=== PATIENT | female | born 1975 | race American Indian/Alaskan Native ===

== ENCOUNTER 2018-03-15 23:18 | Inpatient (IN) | payer MEDICAID ==
[2018-03-15 23:18] VITALS: BMI 35.4
[2018-03-15 23:57] LABS: BASO % 0.3 % (0.0-2.0); EOS # 0.1 K/uL (0.0-0.7); EOS % 1.5 % (0.0-4.0); HEMOGLOBIN 9.3 g/dL (11.0-16.0); LYMPH # 2.3 K/uL (1.0-4.3); MEAN CELL VOLUME 85.8 fL (81.0-99.0); MEAN CORPUSCULAR HGB CONC 33.8 g/dL (33.0-37.0); MEAN PLATELET VOLUME 8.8 fL (7.2-11.7); MONO # 0.4 K/uL (0.0-0.8); MONO % 5.3 % (0.0-10.0); NEUT # 4.2 K/uL (1.8-7.0); NEUT % 59.9 % (50.0-75.0); RBC 3.19 Mil/uL (3.80-5.20); RED CELL DISTRIBUTION WIDTH 14.3 % (11.5-14.5)
[2018-03-16 00:02] LABS: INR 1.1; PROTHROMBIN TIME 12.4 SECONDS (9.7-12.2)
[2018-03-16 00:18] LABS: ALB/GLOB RATIO 1.3 (1.0-2.1); ALT/SGPT 22 U/L (9-52); AST/SGOT 20 U/L (14-36); BLOOD UREA NITROGEN 11 mg/dL (7-17); CALCIUM 9.4 mg/dl (8.6-10.4); GFR AFRICAN-AMERICAN > 60; GFR NON-AFRICAN AMERICAN > 60
--- NOTE | 2018-03-16 01:29 | C.PDOC ---
History Of Present Illness 42 year old female presents to the emergency department with complaints of sudden onset of heavy vaginal bleeding since earlier this evening. Patient reports that her last normal menstrual period was last month. Patient also reports a lower abdominal cramp, but she denies syncope, control use, or prior history of STD. Chief Complaint (Nursing): Abdominal Pain History Per: Patient History/Exam Limitations: no limitations Onset/Duration Of Symptoms: Hrs Current Symptoms Are (Timing): Still Present Location Of Pain/Discomfort: Other (lower abdominal pain) Radiation Of Pain To:: None Quality Of Discomfort: Cramping Associated Symptoms: Other (vaginal bleeding) : 3 Para: 3 Past Medical History Reviewed: Historical Data, Nursing Documentation, Vital Signs Vital Signs: Last Vital Signs Temp 98.3 F 03/16/18 05:20 Pulse 75 03/16/18 05:20 Resp 20 03/16/18 05:20 BP 96/56 L 03/16/18 05:20 Pulse Ox 100 03/16/18 05:58 - Medical History PMH: No Chronic Diseases Surgical History: No Surg Hx - [facility] Procedures DPT ADMINISTRATION (06/11/15) MANUAL ASSIST DELIV NEC (06/11/15) Family History: States: No Known Family Hx - Social History Hx Tobacco Use: No Hx Alcohol Use: Yes Hx Substance Use: No - Immunization History Hx Tetanus Toxoid Vaccination: No Hx Influenza Vaccination: No Hx Pneumococcal Vaccination: No Review Of Systems Cardiovascular: Negative for: Light Headedness, Other (syncope) Gastrointestinal: Positive for: Abdominal Pain (cramp) Genitourinary: Positive for: Vaginal Bleeding Physical Exam - Physical Exam Appears: Non-toxic, In Acute Distress (moderate distress, is experiencing pain and generalized weakness) Skin: Normal Color, Warm, Dry Head: Atraumatic, Normacephalic Eye(s): bilateral: Normal Inspection Nose: Normal Neck: Supple Chest: Symmetrical Cardiovascular: Rhythm Regular Gastrointestinal/Abdominal: Normal Exam, Soft, Tenderness (suprapubic tenderness ), No Mass, No Guarding, No Rebound Pelvic: Normal External Exam (genitalia within normal limits), Normal Bimanual Exam (copious amounts of clotted blood extending all the way down to the cervix. ), Vaginal Bleeding (dried, coagulated blood present), No Adnexal Tenderness, Tender Uterus, Other (products of inception) Extremity: Normal ROM (uterus is firm) DTR: Ankle (R): 0, Ankle (L): 0 Neurological/Psych: Oriented x3, Normal Speech, Normal Cognition ED Course And Treatment - Laboratory Results Result Diagrams: 03/16/18 03:19 03/15/18 23:52 O2 Sat by Pulse Oximetry: 100 (RA) Pulse Ox Interpretation: Normal Medical Decision Making Medical Decision Making: Plan: Packed Red Blood Cells Type and Screen Beta-HCG CMP CBC PTT Prothombin Time Transfuse Blood US Pelvis/Transvaginal Prior to MDM, patient was hypotensive. Impression: Incomplete AB vs. Complete AB vs. Ectopic Spoke with Dr. Jerez who came to the ED and removed further product. She wanted to wait for a second hematocrit reading before final disposition. Upon obtaining second reading of 6.3, she agreed to admit the patient under her service. Disposition - Disposition Disposition: HOSPITALIZED Disposition Time: 06:08 Condition: FAIR - Clinical Impression Clinical Impression: Miscarriage - Scribe Statement The provider has reviewed the documentation as recorded by the Scribe (Jonathan Velásquez) Provider Attestation: All medical record entries made by the Scribe were at my direction and personally dictated by me. I have reviewed the chart and agree that the record accurately reflects my personal performance of the history, physical exam, medical decision making, and the department course for this patient. I have also personally directed, reviewed, and agree with the discharge instructions and disposition.
--- NOTE | 2018-03-16 03:05 | CP.PCM.CON ---
History of Present Illness - History of Present Illness History of Present Illness: 42 ytr lmp 02/13/18 came with c/o heavuy vb stard yesterday night wityc;ot and cramping. pt did not knew she is preg, undesire prg. obhx 3 x pmh den med pnv all nkda psh de soh de sse clost in the cervix, removed send to pathology.no more active vb abd sof,non tender Past Patient History - Past Social History Smoking Status: Never Smoked - PSYCHIATRIC Hx Substance Use: No - SURGICAL HISTORY Hx Surgeries: No Meds Allergies/Adverse Reactions: Allergies Allergy/AdvReac Type Severity Reaction Status Date / Time No Known Allergies Allergy Verified 03/15/18 23:31 Physical Exam - Exam Speculum exam: Vaginal Bleeding Bimanual exam: NORMAL BIMANUAL EXAM Results - Vital Signs Recent Vital Signs: Last Vital Signs Temp 97.2 F L 03/15/18 23:29 Pulse 79 03/15/18 23:29 Resp 16 03/15/18 23:29 BP 119/76 03/15/18 23:29 Pulse Ox 100 03/16/18 01:29 - Labs Result Diagrams: 03/15/18 23:52 03/15/18 23:52 Labs: Laboratory Results - last 24 hr 03/15/18 03/15/18 03/15/18 23:52 23:52 23:52 WBC 7.0 RBC 3.19 L Hgb 9.3 L Hct 27.4 L MCV 85.8 MCH 29.0 MCHC 33.8 RDW 14.3 Plt Count 191 MPV 8.8 Neut % (Auto) 59.9 Lymph % (Auto) 33.0 [place] % (Auto) 5.3 Eos % (Auto) 1.5 Baso % (Auto) 0.3 Neut # (Auto) 4.2 Lymph # (Auto) 2.3 [place] # (Auto) 0.4 Eos # (Auto) 0.1 Baso # (Auto) 0.0 PT 12.4 H INR 1.1 APTT 26 Sodium 139 Potassium 3.2 L Chloride 105 Carbon Dioxide 24 Anion Gap 14 BUN 11 Creatinine 0.6 L Est GFR ( Amer) > 60 Est GFR (Non-Af Amer) > 60 Random Glucose 101 Calcium 9.4 Total Bilirubin 0.6 AST 20 ALT 22 Alkaline Phosphatase 40 Total Protein 7.1 Albumin 4.0 Globulin 3.1 Albumin/Globulin Ratio 1.3 Beta HCG, Quant 1704.90 Blood Type Antibody Screen 03/16/18 00:42 WBC RBC Hgb Hct MCV MCH MCHC RDW Plt Count MPV Neut % (Auto) Lymph % (Auto) [place] % (Auto) Eos % (Auto) Baso % (Auto) Neut # (Auto) Lymph # (Auto) [place] # (Auto) Eos # (Auto) Baso # (Auto) PT INR APTT Sodium Potassium Chloride Carbon Dioxide Anion Gap BUN Creatinine Est GFR ( Amer) Est GFR (Non-Af Amer) Random Glucose Calcium Total Bilirubin AST ALT Alkaline Phosphatase Total Protein Albumin Globulin Albumin/Globulin Ratio Beta HCG, Quant Blood Type A POSITIVE Antibody Screen Negative Assessment & Plan - Assessment and Plan (Free Text) Assessment: 42 yr complete
[2018-03-16 03:33] LABS: BASO # 0.1 K/uL (0.0-0.2); BASO % 1.7 % (0.0-2.0); EOS % 0.3 % (0.0-4.0); LYMPH % 12.1 % (20.0-40.0); MEAN CELL VOLUME 86.5 fL (81.0-99.0); MEAN CORPUSCULAR HEMOGLOBIN 28.8 pg (27.0-31.0); MEAN CORPUSCULAR HGB CONC 33.3 g/dL (33.0-37.0); MEAN PLATELET VOLUME 8.4 fL (7.2-11.7); MONO # 0.3 K/uL (0.0-0.8); MONO % 3.5 % (0.0-10.0); NEUT # 6.8 K/uL (1.8-7.0); NEUT % 82.4 % (50.0-75.0); RBC 2.19 Mil/uL (3.80-5.20); RED CELL DISTRIBUTION WIDTH 14.2 % (11.5-14.5); WHITE BLOOD COUNT 8.2 K/uL (4.8-10.8)
[2018-03-16 03:36] LABS: HEMOGLOBIN 6.3 g/dL (11.0-16.0)
[2018-03-16] MEDS: Lactated Ringer's 1,000 ML IV SCH ×5 (03:48→23:45)
--- NOTE | 2018-03-16 04:39 | US ---
EXAM: US First Trimester, Transabdominal US , Transvaginal CLINICAL HISTORY: 42 years old, female; Signs and symptoms; Other: Bleeding; Additional info: Bleeding bed 9 TECHNIQUE: Real-time transabdominal and transvaginal obstetrical ultrasound of the maternal pelvis and a first trimester with image documentation. Transvaginal imaging was used for better evaluation of the fetus and adnexa. COMPARISON: No relevant prior studies available. FINDINGS: Gestation: No intrauterine gestational sac. Uterus/cervix: Endometrium: 1.5 cm in thickness, heterogeneous and hypervascular. Closed cervix. Ovaries: Normal ovaries. No adnexal masses. Free fluid: No significant free fluid. IMPRESSION: 1. No intrauterine gestation. DDX: Early IUP, missed , ectopic . 2. Thickened, heterogeneous, hypervascular endometrium. RPOC not excluded.
--- NOTE | 2018-03-16 07:16 | CP.PCM.HP ---
History of Present Illness - History of Present Illness History of Present Illness: 42 year old female comes into the emergency department complaining of sudden heavy vaginal bleeding that began last night. The patient also reports cramping in conjunction with the bleeding. The patient was found to be when admitted. Patient reports she didn't know she was . Patient's last menstrual period is 02/13/18. Patient denies any syncopal episodes, chest pain, shortness of breath, fevers, chills, nausea, vomiting, changes in vision, dizziness, or any other complaints. obhx 3 x Past medical history: denies. Medications: Denies Allergies: denies Past surgical history: denies Social history: Denies Present on Admission - Present on Admission Any Indicators Present on Admission: No Review of Systems - Constitutional Constitutional: absent: Chills, Daytime Sleepiness - EENT Eyes: absent: Blurred Vision, Discharge, Loss of Peripheral Vision, Loss of Vision Ears: absent: Ear Discharge, Dizziness Nose/Mouth/Throat: absent: Nasal Congestion - Breasts Breasts: absent: Mass, Swelling - Cardiovascular Cardiovascular: absent: Chest Pain, Irregular Heart Rhythm, Leg Edema, Orthopnea - Respiratory Respiratory: absent: Cough, Dyspnea, Hemoptysis - Gastrointestinal Gastrointestinal: absent: Belching, Diarrhea, Heartburn, Nausea, Vomiting - Genitourinary Additional comments: Vaginal bleeding. - Musculoskeletal Musculoskeletal: absent: Arthralgias, Back Pain, Neck Pain - Integumentary Integumentary: absent: Lesions, Striae - Psychiatric Psychiatric: absent: Anxiety, Change in Appetite, Panic Attacks, Paranoia Past Patient History - Past Medical History & Family History Past Medical History?: No - Past Social History Smoking Status: Never Smoked - MUSCULOSKELETAL/RHEUMATOLOGICAL Hx Falls: No - PSYCHIATRIC Hx Substance Use: No - SURGICAL HISTORY Hx Surgeries: No Meds Allergies/Adverse Reactions: Allergies Allergy/AdvReac Type Severity Reaction Status Date / Time No Known Allergies Allergy Verified 03/15/18 23:31 Physical Exam - Head Exam Head Exam: ATRAUMATIC, NORMAL INSPECTION, NORMOCEPHALIC - Eye Exam Eye Exam: Normal appearance - ENT Exam ENT Exam: Mucous Membranes Moist - Respiratory Exam Respiratory Exam: Clear to Auscultation Bilateral, NORMAL BREATHING PATTERN - Cardiovascular Exam Cardiovascular Exam: REGULAR RHYTHM - GI/Abdominal Exam GI & Abdominal Exam: Normal Bowel Sounds, Soft - Extremities Exam Extremities exam: Positive for: normal inspection - Back Exam Back exam: NORMAL INSPECTION. absent: CVA tenderness (L), CVA tenderness (R), paraspinal tenderness - Neurological Exam Neurological exam: Alert, CN II-XII Intact, Oriented x3 - Psychiatric Exam Psychiatric exam: Normal Affect, Normal Mood - Skin Skin Exam: Dry, Intact Results - Vital Signs Recent Vital Signs: Last Vital Signs Temp 98.4 F 03/16/18 06:00 Pulse 81 03/16/18 06:00 Resp 20 03/16/18 06:00 BP 92/52 L 03/16/18 06:00 Pulse Ox 100 03/16/18 06:08 - Labs Result Diagrams: 03/16/18 03:19 03/15/18 23:52 Labs: Laboratory Results - last 24 hr 03/15/18 03/15/18 03/15/18 23:52 23:52 23:52 WBC 7.0 RBC 3.19 L Hgb 9.3 L Hct 27.4 L MCV 85.8 MCH 29.0 MCHC 33.8 RDW 14.3 Plt Count 191 MPV 8.8 Neut % (Auto) 59.9 Lymph % (Auto) 33.0 [place] % (Auto) 5.3 Eos % (Auto) 1.5 Baso % (Auto) 0.3 Neut # (Auto) 4.2 Lymph # (Auto) 2.3 [place] # (Auto) 0.4 Eos # (Auto) 0.1 Baso # (Auto) 0.0 PT 12.4 H INR 1.1 APTT 26 Sodium 139 Potassium 3.2 L Chloride 105 Carbon Dioxide 24 Anion Gap 14 BUN 11 Creatinine 0.6 L Est GFR ( Amer) > 60 Est GFR (Non-Af Amer) > 60 Random Glucose 101 Calcium 9.4 Total Bilirubin 0.6 AST 20 ALT 22 Alkaline Phosphatase 40 Total Protein 7.1 Albumin 4.0 Globulin 3.1 Albumin/Globulin Ratio 1.3 Beta HCG, Quant 1704.90 Blood Type Antibody Screen 03/16/18 03/16/18 00:42 03:19 WBC 8.2 RBC 2.19 L Hgb 6.3 L* D Hct 19.0 L MCV 86.5 MCH 28.8 MCHC 33.3 RDW 14.2 Plt Count 165 MPV 8.4 Neut % (Auto) 82.4 H Lymph % (Auto) 12.1 L [place] % (Auto) 3.5 Eos % (Auto) 0.3 Baso % (Auto) 1.7 Neut # (Auto) 6.8 Lymph # (Auto) 1.0 [place] # (Auto) 0.3 Eos # (Auto) 0.0 Baso # (Auto) 0.1 PT INR APTT Sodium Potassium Chloride Carbon Dioxide Anion Gap BUN Creatinine Est GFR ( Amer) Est GFR (Non-Af Amer) Random Glucose Calcium Total Bilirubin AST ALT Alkaline Phosphatase Total Protein Albumin Globulin Albumin/Globulin Ratio Beta HCG, Quant Blood Type A POSITIVE Antibody Screen Negative Assessment & Plan - Assessment and Plan (Free Text) Assessment: 42 yr complete Plan: -Transfuse PRBC's -IV fluids -Monitor blood count with serial CBC's -Pain management -Will continue to monitor.
[2018-03-16] MEDS ORDERED: Potassium Chloride 20 mEq ER Tab PO ONE (10:00)
[2018-03-16 16:27] VITALS: RESP 20
[2018-03-16 17:43] LABS: BASO % 0.2 % (0.0-2.0); EOS % 0.6 % (0.0-4.0); HEMOGLOBIN 7.7 g/dL (11.0-16.0); LYMPH # 1.8 K/uL (1.0-4.3); LYMPH % 26.5 % (20.0-40.0); MEAN CELL VOLUME 85.5 fL (81.0-99.0); MEAN CORPUSCULAR HEMOGLOBIN 28.8 pg (27.0-31.0); MEAN CORPUSCULAR HGB CONC 33.7 g/dL (33.0-37.0); MEAN PLATELET VOLUME 8.9 fL (7.2-11.7); MONO # 0.4 K/uL (0.0-0.8); MONO % 5.7 % (0.0-10.0); NEUT # 4.6 K/uL (1.8-7.0); RBC 2.67 Mil/uL (3.80-5.20); RED CELL DISTRIBUTION WIDTH 14.5 % (11.5-14.5); WHITE BLOOD COUNT 6.8 K/uL (4.8-10.8)
[2018-03-17 04:45] VITALS: O2SAT 99
[2018-03-17 08:49] LABS: BASO % 0.4 % (0.0-2.0); EOS # 0.1 K/uL (0.0-0.7); EOS % 1.1 % (0.0-4.0); HEMOGLOBIN 8.4 g/dL (11.0-16.0); LYMPH % 36.4 % (20.0-40.0); MEAN CELL VOLUME 85.9 fL (81.0-99.0); MEAN CORPUSCULAR HEMOGLOBIN 28.8 pg (27.0-31.0); MEAN CORPUSCULAR HGB CONC 33.5 g/dL (33.0-37.0); MEAN PLATELET VOLUME 8.7 fL (7.2-11.7); MONO # 0.3 K/uL (0.0-0.8); MONO % 5.8 % (0.0-10.0); NEUT # 3.1 K/uL (1.8-7.0); NEUT % 56.3 % (50.0-75.0); NRBC % 0.1 % (0.0-2.0); RBC 2.9 Mil/uL (3.80-5.20); WHITE BLOOD COUNT 5.6 K/uL (4.8-10.8)
[2018-03-17 09:09] LABS: ALB/GLOB RATIO 1.1 (1.0-2.1); ALBUMIN 3.2 g/dL (3.5-5.0); ALT/SGPT 23 U/L (9-52); AST/SGOT 19 U/L (14-36); BLOOD UREA NITROGEN 3 mg/dL (7-17); CALCIUM 8.7 mg/dl (8.6-10.4); GFR AFRICAN-AMERICAN > 60; GFR NON-AFRICAN AMERICAN > 60
[2018-03-17 09:23] VITALS: BP 97/53; PULSE 74; TEMP 98.1
[2018-03-17] MEDS: Lactated Ringer's 1,000 ML IV SCH (09:27)
--- NOTE | 2018-03-17 10:19 | CP.PCM.DIS ---
<[place] - Last Filed: 03/17/18 13:27> Provider - Provider Date of Admission: 03/16/18 03:53 Attending physician: Lee Jerez MD Time Spent in preparation of Discharge (in minutes): 40 Hospital Course - Lab Results Lab Results: Most Recent Lab Values WBC 5.6 K/uL (4.8-10.8) 03/17/18 08:44 RBC 2.90 Mil/uL (3.80-5.20) L 03/17/18 08:44 Hgb 8.4 g/dL (11.0-16.0) L 03/17/18 08:44 Hct 24.9 % (34.0-47.0) L 03/17/18 08:44 MCV 85.9 fL (81.0-99.0) 03/17/18 08:44 MCH 28.8 pg (27.0-31.0) 03/17/18 08:44 MCHC 33.5 g/dL (33.0-37.0) 03/17/18 08:44 RDW 15.0 % (11.5-14.5) H 03/17/18 08:44 Plt Count 142 K/uL (130-400) 03/17/18 08:44 MPV 8.7 fL (7.2-11.7) 03/17/18 08:44 Neut % (Auto) 56.3 % (50.0-75.0) 03/17/18 08:44 Lymph % (Auto) 36.4 % (20.0-40.0) 03/17/18 08:44 [place] % (Auto) 5.8 % (0.0-10.0) 03/17/18 08:44 Eos % (Auto) 1.1 % (0.0-4.0) 03/17/18 08:44 Baso % (Auto) 0.4 % (0.0-2.0) 03/17/18 08:44 Neut # (Auto) 3.1 K/uL (1.8-7.0) 03/17/18 08:44 Lymph # (Auto) 2.0 K/uL (1.0-4.3) 03/17/18 08:44 [place] # (Auto) 0.3 K/uL (0.0-0.8) 03/17/18 08:44 Eos # (Auto) 0.1 K/uL (0.0-0.7) 03/17/18 08:44 Baso # (Auto) 0.0 K/uL (0.0-0.2) 03/17/18 08:44 PT 12.4 SECONDS (9.7-12.2) H 03/15/18 23:52 INR 1.1 03/15/18 23:52 APTT 26 SECONDS (21-34) 03/15/18 23:52 Sodium 141 mmol/L (132-148) 03/17/18 08:44 Potassium 3.5 mmol/L (3.6-5.2) L 03/17/18 08:44 Chloride 108 mmol/L (98-107) H 03/17/18 08:44 Carbon Dioxide 26 mmol/L (22-30) 03/17/18 08:44 Anion Gap 10 (10-20) 03/17/18 08:44 BUN 3 mg/dL (7-17) L 03/17/18 08:44 Creatinine 0.5 mg/dL (0.7-1.2) L 03/17/18 08:44 Est GFR ( Amer) > 60 03/17/18 08:44 Est GFR (Non-Af Amer) > 60 03/17/18 08:44 Random Glucose 90 mg/dL (65-105) 03/17/18 08:44 Calcium 8.7 mg/dl (8.6-10.4) 03/17/18 08:44 Total Bilirubin 1.0 mg/dL (0.2-1.3) 03/17/18 08:44 AST 19 U/L (14-36) 03/17/18 08:44 ALT 23 U/L (9-52) 03/17/18 08:44 Alkaline Phosphatase 37 U/L (38-126) L 03/17/18 08:44 Total Protein 6.1 g/dL (6.3-8.3) L 03/17/18 08:44 Albumin 3.2 g/dL (3.5-5.0) L 03/17/18 08:44 Globulin 2.8 gm/dL (2.2-3.9) 03/17/18 08:44 Albumin/Globulin Ratio 1.1 (1.0-2.1) 03/17/18 08:44 Beta HCG, Quant 870.38 mIU/ML 03/17/18 08:44 Blood Type A POSITIVE 03/16/18 00:42 Antibody Screen Negative 03/16/18 00:42 - Hospital Course Hospital Course: 42 year old female comes into the emergency department complaining of sudden heavy vaginal bleeding that began last night. The patient also reports cramping in conjunction with the bleeding. The patient was found to be when admitted. Patient reports she didn't know she was . Patient's last menstrual period is 02/13/18. Patient denies any syncopal episodes, chest pain, shortness of breath, fevers, chills, nausea, vomiting, changes in vision, dizziness, or any other complaints. obhx 3 x Past medical history: denies. Medications: Denies Allergies: denies Past surgical history: denies Social history: Denies Hospital Course: This was a 42 year old female who came into the E.D. after acute onset of heavy vaginal bleeding since the day began. She also noted she was having cramping in conjunction to the heavy bleeding. Upon admission it was found that she was suffering possible a incomplete vs. complete vs. ectopic . Upon repeat of blood results the the hemoglobin was found to be 6.3. FLOTATION TANK OPERATOR was consulted and the patient was admitted for observation. While admitted the patient was transfused 2 units of PRBC's and responded appropriately to the transfusions. Patient was also found to be hypokalemic which was repleted while admitted. Patient was seen today reports very little spotting, no abdominal pain, and is ambulating with no complications. Patient was examined and determined to be stable for discharge today. Imagin. Transvaginal ultrasound: No intrauterine gestation. DDX: Early IUP, missed , ectopic Thickened heterogenous, hypervascular endometrium. RPOC not exluded. Discharge Instructions: 1. Patient to follow up with [facility] by Thursday and be seen by OBGYN. 2. Patient will be discharged on Iron supplements for 30 day supply. 3.Advised patient to use nothing by vagina for the next two weeks. 4. Patients current medical clinic doesn't have a FLOTATION TANK OPERATOR. Advised patient to follow up in [place]. 5. Advised patient to return to hospital for any new or worsening symptoms. Discharge Exam - Head Exam Head Exam: ATRAUMATIC, NORMAL INSPECTION, NORMOCEPHALIC - Eye Exam Eye Exam: EOMI, Normal appearance, PERRL Pupil Exam: NORMAL ACCOMODATION - ENT Exam ENT Exam: Mucous Membranes Moist, Normal Oropharynx - Respiratory Exam Respiratory Exam: Clear to PA & Lateral, NORMAL BREATHING PATTERN, UNREMARKABLE - Cardiovascular Exam Cardiovascular Exam: REGULAR RHYTHM, +S1, +S2 - GI/Abdominal Exam GI & Abdominal Exam: Normal Bowel Sounds, Unremarkable. absent: Distended, Firm , Guarding - Extremities Exam Extremities exam: normal inspection - Neurological Exam Neurological exam: Alert, CN II-XII Intact, Oriented x3 - Psychiatric Exam Psychiatric exam: Normal Affect, Normal Mood - Skin Skin Exam: Dry, Intact, Normal Color Discharge Plan - Discharge Medications Prescriptions: Ferrous Sulfate [Feosol] 325 mg PO BID #60 tab - Follow Up Plan Condition: FAIR Disposition: HOME/ ROUTINE Instructions: Ferrous Sulfate, Normocytic Normochromic Anemia (DC) Additional Instructions: 1. Patient to follow up with [facility] by Thursday(03/22/18) and be seen by OBGYN. 2. Patient will be discharged on Iron supplements for 30 day supply. 3.Advised patient to use nothing by vagina for the next two weeks. 4. Patients current medical clinic doesn't have a FLOTATION TANK OPERATOR. Advised patient to follow up in [place]. 5. Advised patient to return to hospital for any new or worsening symptoms. <Nidia Dickson A - Last Filed: 03/17/18 22:53> Provider - Provider Date of Admission: 03/16/18 03:53 Attending physician: Lee Jerez MD Hospital Course - Lab Results Lab Results: Most Recent Lab Values WBC 5.6 K/uL (4.8-10.8) 03/17/18 08:44 RBC 2.90 Mil/uL (3.80-5.20) L 03/17/18 08:44 Hgb 8.4 g/dL (11.0-16.0) L 03/17/18 08:44 Hct 24.9 % (34.0-47.0) L 03/17/18 08:44 MCV 85.9 fL (81.0-99.0) 03/17/18 08:44 MCH 28.8 pg (27.0-31.0) 03/17/18 08:44 MCHC 33.5 g/dL (33.0-37.0) 03/17/18 08:44 RDW 15.0 % (11.5-14.5) H 03/17/18 08:44 Plt Count 142 K/uL (130-400) 03/17/18 08:44 MPV 8.7 fL (7.2-11.7) 03/17/18 08:44 Neut % (Auto) 56.3 % (50.0-75.0) 03/17/18 08:44 Lymph % (Auto) 36.4 % (20.0-40.0) 03/17/18 08:44 [place] % (Auto) 5.8 % (0.0-10.0) 03/17/18 08:44 Eos % (Auto) 1.1 % (0.0-4.0) 03/17/18 08:44 Baso % (Auto) 0.4 % (0.0-2.0) 03/17/18 08:44 Neut # (Auto) 3.1 K/uL (1.8-7.0) 03/17/18 08:44 Lymph # (Auto) 2.0 K/uL (1.0-4.3) 03/17/18 08:44 [place] # (Auto) 0.3 K/uL (0.0-0.8) 03/17/18 08:44 Eos # (Auto) 0.1 K/uL (0.0-0.7) 03/17/18 08:44 Baso # (Auto) 0.0 K/uL (0.0-0.2) 03/17/18 08:44 PT 12.4 SECONDS (9.7-12.2) H 03/15/18 23:52 INR 1.1 03/15/18 23:52 APTT 26 SECONDS (21-34) 03/15/18 23:52 Sodium 141 mmol/L (132-148) 03/17/18 08:44 Potassium 3.5 mmol/L (3.6-5.2) L 03/17/18 08:44 Chloride 108 mmol/L (98-107) H 03/17/18 08:44 Carbon Dioxide 26 mmol/L (22-30) 03/17/18 08:44 Anion Gap 10 (10-20) 03/17/18 08:44 BUN 3 mg/dL (7-17) L 03/17/18 08:44 Creatinine 0.5 mg/dL (0.7-1.2) L 03/17/18 08:44 Est GFR ( Amer) > 60 03/17/18 08:44 Est GFR (Non-Af Amer) > 60 03/17/18 08:44 Random Glucose 90 mg/dL (65-105) 03/17/18 08:44 Calcium 8.7 mg/dl (8.6-10.4) 03/17/18 08:44 Total Bilirubin 1.0 mg/dL (0.2-1.3) 03/17/18 08:44 AST 19 U/L (14-36) 03/17/18 08:44 ALT 23 U/L (9-52) 03/17/18 08:44 Alkaline Phosphatase 37 U/L (38-126) L 03/17/18 08:44 Total Protein 6.1 g/dL (6.3-8.3) L 03/17/18 08:44 Albumin 3.2 g/dL (3.5-5.0) L 03/17/18 08:44 Globulin 2.8 gm/dL (2.2-3.9) 03/17/18 08:44 Albumin/Globulin Ratio 1.1 (1.0-2.1) 03/17/18 08:44 Beta HCG, Quant 870.38 mIU/ML 03/17/18 08:44 Blood Type A POSITIVE 03/16/18 00:42 Antibody Screen Negative 03/16/18 00:42 Attending/Attestation - Attestation I have personally seen and examined this patient.: Yes I have fully participated in the care of the patient.: Yes I have reviewed all pertinent clinical information, including history, physical exam and plan: Yes Notes (Text): 03/17/18 22:49 Patient was seen and evaluated with the resident during rounds. I agree with the above as documented. Patient is S/P 2 units PRBCs for acute blood loss anemia in association with completed . Appropriate response. Patient is clinically stable.
== END 2018-03-17 14:38 | disposition home or self-care (01) | DRG 380 ==
LOC: C.ER 23:18 → C.6T 03-16 03:53
PROVIDERS: ADMIT Obstetrics & Gynecology; ATTEND Obstetrics & Gynecology
PROC: 30233N1 Transfusion of Nonautologous Red Blood Cells into Peripheral Vein, Percutaneous Approach (ICD-10-PCS; principal; 2018-03-16)
DX: O03.6 Delayed or excessive hemorrhage following complete or unspecified spontaneous abortion (principal); D62 Acute posthemorrhagic anemia; E87.6 Hypokalemia; O03.83 Metabolic disorder following complete or unspecified spontaneous abortion